=== PATIENT | male | born 1940 | race Caucasian/White ===

== ENCOUNTER 2018-06-02 11:10 | Emergency (ER) | payer MEDICARE, OTHER ==
[2018-06-02 11:44] VITALS: BP 127/54
--- NOTE | 2018-06-02 12:19 | UC ---
Abdominal Pain Male HPI - HPI Summary HPI Summary: diarrhea x 4 weeks abdominal pain / cramps diarrhea is like water , few times a day , very foul smelling no nausea, no vomiting, no dysuria no fever , no chills - History of Current Complaint Chief Complaint: UCGI Stated Complaint: DIARRHEA Time Seen by Provider: 06/02/18 11:47 Hx Obtained From: Patient Onset/Duration: Gradual Onset, Lasting Weeks - 4, Still Present Timing: Constant Severity Initially: Moderate Severity Currently: Moderate Pain Intensity: 2 Location: Diffuse Radiates: No Character: Cramping Associated Signs And Symptoms: Positive: Diarrhea. Negative: Diaphoresis, Fever , Cough, Chest Pain, Dizzy, Back Pain, Constipation, Blood in Stool, Urinary Symptoms, Nausea, Vomiting - Allergies/Home Medications Allergies/Adverse Reactions: Allergies Allergy/AdvReac Type Severity Reaction Status Date / Time acetaminophen Allergy Difficulty Verified 06/02/18 11:28 Breathing levothyroxine sodium Allergy Hives Verified 06/02/18 11:28 [From Synthroid] Sulfa (Sulfonamide Allergy Hives Verified 06/02/18 11:28 Antibiotics) Home Medications: Home Medications Ramipril CAP* [Altace CAP*] 1 tab DAILY 06/02/18 [History Confirmed 06/02/18] amLODIPine TAB* [Norvasc 5 mg TAB*] 1 tab DAILY 06/02/18 [History Confirmed ] PMH/Surg Hx/FS Hx/Imm Hx Endocrine History: Diabetes, Thyroid Disease Cardiovascular History: Cardiac Disease, Hypertension Respiratory History: COPD, Asthma - Surgical History Surgical History: Yes Surgery Procedure, Year, and Place: melanoma. bilat shoulder. appendix. gallbladder. "broken neck", c1, c6-7- 2 titanium plates - Family History Known Family History: Positive: Hypertension - Social History Alcohol Use: Weekly Alcohol Amount: "couple drinks/day" Substance Use Type: None Smoking Status (MU): Former Smoker Review of Systems All Other Systems Reviewed And Are Negative: Yes Constitutional: Positive: Negative Skin: Positive: Negative Eyes: Positive: Negative ENT: Positive: Negative Respiratory: Positive: Negative Cardiovascular: Positive: Negative Gastrointestinal: Positive: Diarrhea Genitourinary: Positive: Negative Is Patient Immunocompromised?: No Physical Exam Triage Information Reviewed: Yes Appearance: Well-Appearing, No Pain Distress, Well-Nourished Vital Signs: Initial Vital Signs Temp 97.3 F 04/26/19 11:34 Pulse 56 06/02/18 11:34 Resp 16 06/02/18 11:34 BP 127/54 06/02/18 11:34 Pulse Ox 98 06/02/18 11:34 Vital Signs Reviewed: Yes Eye Exam: Normal Eyes: Positive: Conjunctiva Clear ENT: Positive: Normal ENT inspection, Hearing grossly normal, Pharynx normal Neck: Positive: Supple, Nontender, No Lymphadenopathy Respiratory: Positive: Chest non-tender, Lungs clear, Normal breath sounds Cardiovascular Exam: Normal Cardiovascular: Positive: RRR, No Murmur, Pulses Normal Abdomen Description: Positive: Nontender, No Organomegaly, Soft. Negative: CVA Tenderness (R), CVA Tenderness (L), Distended, Guarding Bowel Sounds: Positive: Present Skin Exam: Normal Abd Pain Male Course/Dx - Differential Dx/Clinical Impression Provider Diagnosis: Diarrhea Discharge - Sign-Out/Discharge Documenting (check all that apply): Patient Departure All imaging exams completed and their final reports reviewed: No Studies - Discharge Plan Condition: Stable Disposition: HOME Prescriptions: Diphenoxylat/Atrop 2.5-0.025M* [Lomotil TAB*] 1 tab PO QID #20 tab MDD 4 tabs Patient Education Materials: Acute Diarrhea (ED) Referrals: Adarsh Ruffin MD [Primary Care Provider] - 5 Days Additional Instructions: will check stool culture and c.diff please call the office by Tuesday for the lab results - Billing Disposition and Condition Condition: STABLE Disposition: Home
--- NOTE | 2018-06-05 07:48 | UC ---
- Progress Note Progress Note: stool: brown, non formed, soft no change ljj 06/05/18 Course/Dx - Diagnoses Provider Diagnoses: Diarrhea Discharge - Sign-Out/Discharge Documenting (check all that apply): Post-Discharge Follow Up All imaging exams completed and their final reports reviewed: No Studies - Discharge Plan Condition: Stable Disposition: HOME Prescriptions: Diphenoxylat/Atrop 2.5-0.025M* [Lomotil TAB*] 1 tab PO QID #20 tab MDD 4 tabs Patient Education Materials: Acute Diarrhea (ED) Referrals: Adarsh Ruffin MD [Primary Care Provider] - 5 Days Additional Instructions: will check stool culture and c.diff please call the office by Tuesday for the lab results - Billing Disposition and Condition Condition: STABLE Disposition: Home
== END 2018-06-02 12:45 | disposition home or self-care (01) ==
LOC: UCCORT 11:10
DX: R19.7 Diarrhea, unspecified (principal); I10 Essential (primary) hypertension; R10.9 Unspecified abdominal pain; J44.9 Chronic obstructive pulmonary disease, unspecified; E11.9 Type 2 diabetes mellitus without complications; Z88.2 Allergy status to sulfonamides; Z88.8 Allergy status to other drugs, medicaments and biological substances
CPT/HCPCS: 87493; 99202; G0463